=== PATIENT | male | born 1995 ===

== ENCOUNTER 2025-02-17 10:32 | Outpatient (AMB) | payer OTHER, SELFPAY ==
--- NOTE | 2025-02-17 10:33 | A.OFFVIS_ITS ---
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 STarting 3 to 4 years ago and worsening. Pt states he has UE numbness and shortness of breathe thats worsening and discoloar tion spreads to abdomen. 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 The rash initially appeared as senior procurement specialist colored spots that progressively darkened, now expanding to different areas including the arms and potentially extending to the chest. Despite seeing multiple dermatologists, the progression of the rash continues. A topical cream was attempted with no significant improvement and the dermatologists have mentioned the condition might be irreversible. His dermatologic history includes suggestions of vessel leakage, but vascular issues have been largely ruled out at a recent evaluation. He seeks to prevent the spread and claims prior health professionals have made limited interventions apart from the trialed topical treatment. Furthermore, the patient denies smoking, is a general maintenance mechanic by trade, and has been under observation for borderline prediabetes for roughly three years, with little change although he's tried adjusting his diet. [facility] Surgical History (Updated 02/17/25 @ 10:45 by LANCE Yang) H/O eye surgery Social History (Updated 02/17/25 @ 10:46 by LANCE Yang) Patient Tobacco Use Status: Never used Tobacco Review of Systems Const All systems reviewed & are unremarkable except as noted in HPI and below Reports no additional complaints ENT Reports Normal hearing present Card Denies chest pain, Denies chest pain at rest, Denies chest pain with activity and Denies pedal edema Resp Denies cough GI Denies abdominal pain Musc Denies abnormal gait, Denies muscle cramps and Denies radiating pain into limb Skin/Breast Denies skin ulcer and Denies wounds Neuro Reports Normal hearing present and Denies abnormal gait Psych Reports no additional complaints Physical Exam Vital Signs: BMI result Body Mass Index 31.4 Const General: cooperative, healthy appearing and comfortable Orientation/consciousness: oriented to person, oriented to place and oriented to time HEENT Head: Yes normal to inspection Neck Neck: Yes normal visual inspection Carotids: no bruits Chest Chest palpation & inspection: normal inspection of the chest Resp Effort & Inspection: normal respiratory effort and able to speak in complete sentences Auscultation: clear to auscultation bilaterally, no crackles, no rales, no rhonchi and no wheezes Cardio Other: Palpable upper extremity brachial radial ulnar pulses and lower extremity palpable dorsalis pedis and posterior tibial pulses. Rate: regular rate Rhythm: regular rhythm Heart sounds: S1 normal heart sound present and S2 normal heart sound present Bruits: no carotid bruits Peripheral pulses: Peripheral pulses 2+ throughout GI Inspection: Yes normal to inspection Skin Other: Discolored areas on the pretibial surfaces along with small focal areas throughout the lateral thighs and beginnings of some discoloration of the upper extremities. Wounds: no wounds Hair: normal Neuro General: oriented to person, oriented to place and oriented to time Cranial nerves: Yes CN's II-XII intact bilaterally and Yes Normal hearing present Cognition (Neuro): normal cognition Motor exam (neuro): 5/5 motor strength present throughout Extrem Other: venous exam: No significant superficial varicosities or spider telangiectasias, minimal edema General: No clubbing, No cyanosis and No edema Psych Appearance: grossly normal Mental Status: mental status grossly normal Speech and movement: Normal speech and movement present Results Reviewed Results Reviewed: Path results from 01/20/2025 - spongiotic/eczematous dermatitis Assessment & Plan Assessment & Plan (1) Dermatitis: Code(s): L30.9 - Dermatitis, unspecified Category: Medical Plan: We discussed the current state of the patient's dermatological condition, characterized by spongiotic dermatitis and pigmented purpura. The patient voiced concerns about the lack of effective treatment and the ongoing spread of the rash. After ruling out vascular issues, I recommended he seek out services at a tertiary care dermatology center, specifically [facility], where they have experience with complicated cases like his. We examined the benefits of a larger facility's resources for managing his kind of skin condition compared to local practices that seemed limited in their solutions. I emphasized the need for prevention of further spread and management alternatives available at such centers. We agreed that pursuing more specialized care could present more strategic treatment options. No prohibitive risks were noted, and the patient consented to this recommendation. Plan Patient was informed and verbally consented to the use of an ambient scribe for clinic note documentation during this visit. Patient Instructions: - Follow up with a dermatology department at a large [facility], such as [facility] or [place]. - Monitor the spread and appearance of new spots on the skin. - Seek further dermatological evaluation as advised. - Maintain a balanced diet to manage borderline prediabetes. - Contact healthcare provider with any significant changes. Coding Level of Care Code New Pt Level 4 (98075) Diagnoses Dermatitis L30.9
[2025-02-17 10:41] VITALS: BMI 31.4
--- OUTSIDE RECORDS SUMMARY | 2025-02-17 12:19 | XMS_ITS | Clinical Summary ---
Author Organization [facility] ity Address [address] [place] [address] Care Team Providers Care Drug Safety Specialist Name Role Phone Unavailable Primary Care Provider Unavailabl e Social History Tobacco Use Types Packs/Day Years Used Date Smoking Tobacco: Never Assessed Sex and Gender Information Value Date Recorded Sex Assigned at Not on file Legal Sex Male 1:52 PM EST Gender Identity Not on file Sexual Orientation Not on file Plan of Treatment Health Maintenance Due Date Last Done Comments DTaP,Tdap,and Td Vaccines (1 - Tdap) 2013 Hepatitis B Vaccines (1 of 3 - 19+ 3-dose series) 2013 COVID-19 Vaccine (2023-2 5 season) 2024 Influenza Vaccine (Season Ended) 2025 HIB Vaccines Aged Out No longer eligi ble based on patient's age to complete this topic HPV Vaccines Aged Out No longer eligi ble based on patient's age to complete this topic Hepatitis A Vaccines Aged Out No long er eligible based on patient's age to complete this topic IPV Vaccines Aged Out No longer eligi ble based on patient's age to complete this topic MMR Vaccines Aged Out No longer eligi ble based on patient's age to complete this topic Meningococcal ACWY Vaccine Aged Out N o longer eligible based on patient's age to complete this topic Meningococcal B Vaccine Aged Out No l onger eligible based on patient's age to complete this topic Pneumococcal Vaccine: Pediat rics (0 to 5 Years) and At-Risk Patients (6 to 64 Years) Aged Out No longer eligible b ased on patient's age to complete this topic RSV Immunization Patients Un nevaeh 20 months Aged Out No longer eligible b ased on patient's age to complete this topic Varicella Vaccines Aged Out No longer eligible based on patient's age to complete this topic
== END 2025-02-17 11:14 | disposition home or self-care (01) ==
PROVIDERS: Visit Provider Surgery Vascular Surgery
DX: L30.9 Dermatitis, unspecified (principal)
CPT/HCPCS: 99204

== ENCOUNTER → 2025-02-17 10:32 | Outpatient (BNVA) | payer OTHER, SELFPAY | PROVIDERS: Visit Provider Surgery Vascular Surgery ==